=== PATIENT | female | born 1975 | race Caucasian/White ===

== ENCOUNTER → 2021-04-19 | Outpatient (CLI) | payer OTHER ==
[~2021-04-19] VITALS: Ht 162.6 cm; Wt 138.2 kg
[~2021-04-19] MED LIST: BETAMETHASONE D50 G2 TOP; BREO ELLIPTA 21 EACH INH; CARAFATE 1 GM TA1 GM PO; CHILDREN'S ZYRT10 M1 PO; FEROSUL325 M1 PO; FUROSEMIDE 40 M40 MG PO; HYDROCODON-ACE1 EAC7 PO; INCRUSE ELLI62.5 MCG INH; KLOR-CON M2020 MEQ PO; LAMOTRIGINE250 MG PO; LEVO-T100 MCG PO; METFORMIN HCL500 M3 PO; METHOTREXATE 22.5 M1 PO; NYAMYC15 GM TOP; NYSTATIN15 G1 TOP; OMEPRAZOLE40 MG PO; ONZETRA XSAIL11 MG PO; ONZETRA XSAIL11 MG SUBQ; OXYGEN MISCELL; PATADAY2.5 ML EA. EYE; PRAVACHOL40 MG PO; PROAIR HFA8.5 GM INH; REMERON 30 MG T30 M1 PO; SEROQUEL XR 20200 MG PO; SPIRIVA18 MCG INH; TREMFYA100 MG/11 SUBQ; TRIAMCINOLONE A80 G2 TOP; VEETIDS 500500 MG PO; VENLAFAXINE HCL75 MG PO; ZANAFLEX4 M1 PO
[2021-04-19 09:00] LABS: HEMATOCRIT 36.4 % (37.0-47.0); MCH 31.2 pg (26.0-34.0); MCHC 33.1 g/dL (28.0-37.0); MCV 94.2 fL (80.0-100.0); RBC 3.86 mil/uL (4.20-5.00); RDW 14.7 % (10.5-14.5); WBC 10.3 thou/uL (4.0-11.0)
[2021-04-19 09:12] LABS: CALCIUM 9.1 mg/dL (8.5-10.1); CREATININE 0.8 mg/dL (0.6-1.0); POTASSIUM 3.8 mmol/L (3.5-5.1)
[2021-04-19 09:22] VITALS: BP 133/78
--- NOTE | 2021-04-19 14:24 | CATHLAB ---
[facility] [place] [address] INVASIVE PROCEDURE REPORT Name: KELLY CHILDERS Room #: REG PRESTON AnguianoAung#: [id number] Admission: 04/19/21 Attend Phys: Jericho Sanches MD, Discharge: Date of : 71 Report #: [id number] THIS REPORT FOR: cc: Giles Camp James R. DO Mancuso, Gerald M. MD [facility] ~ APPROVED REPORT Study performed: 04/19/2021 09:41:50 Patient Details Patient Status: Out-Patient Room #: The patient is a 46 year-old female Event Personnel Jericho Sanches Supervisor [employer], Malaika Felder RN RN, Breanne Matias RTR, Rayna Moreno Ja'net RTR Monitor Procedures Performed Left Heart Cath w/or w/o Coronaries [id number] [facility] Art Access - R femoral artery* 43587 Initial Mod Sed Same Phys/QHP Gr5y 712281 Hemostasis w/ Mynx Indication Chest pain Procedure Narrative The Right Groin^ was infiltrated with 1% Lidocaine subcutaneous anesthesia. A PINNACLE 6FR Sheath #[id number] sheath was inserted into the RFA^. Coronary angiography was performed using coronary diagnostic catheters. The right coronary system was accessed and visualized with a JR4 catheter. The left coronary system was accessed and visualized with a JL4 catheter. The left ventricle was accessed and visualized with a PIGTAIL catheter. Left ventricular/Aortic Valve gradient assessed via catheter pullback. Left ventriculogram was performed in 30 degree projection. Closure device was deployed with a Fr MYNXGRIP 6/7F #[id number]. The patient tolerated the procedure well and there were no complications associated with the procedure. There was no hematoma. Intraoperative Conscious Sedation Sedation start time: 10:18 Case end Time: 10:42 [facility] [place] [address] INVASIVE PROCEDURE REPORT Name: KELLY CHILDERS Room #: [facility] Lynda#: [id number] Admission: 04/19/21 Attend Phys: Jericho Sanches, Discharge: Date of : 71 Report #: [id number] Fentanyl 50 mcg Versed 1 mg Fluoro Time: 1.30 minutes Dose: DAP 8862.10 cGycm2 1048 mGy Contrast Type and Amount: Omnipaque 90 ml Hemodynamics The aortic pressure is 140/79 mmHg with a mean of 109 mmHg. The left ventricular pressure is 163/14 mmHg with a mean of mmHg. The left ventricular end diastolic pressure is 50 mmHg. Pullback from the left ventricle to the aorta revealed no gradient across the aortic valve. Conclusion #1 Normal left jugular size and systolic function EF 60%. #2 abdominal aortogram looks to be a normal caliber aorta brisk distal flow no evidence of aneurysm formation. #3 normal coronary anatomy which was selectively injected. There is no evidence of coronary occlusive disease. It is a right dominant system. Impression/recommendations. Continue aggressive risk factor modification. No indication for coronary intervention. <ELECTRONICALLY SIGNED> By: Jericho Sanches MD, FACC 04/19/21 1424 1424 1424 Jericho Sanches MD, FACC /INF
--- NOTE | 2021-04-19 15:34 | EKG ---
[facility] [place] [place] [address] ELECTROCARDIOGRAM REPORT Name: KELLY CHILDERS [facility] #: [facility] [id number] Admission: 04/19/21 Attend Phys: Jericho Sanches MD, Discharge: Date of : 71 Report #: [id number] [facility] Test Date: 2021-04-19 Test Time: 08:51:29 Pat Name: KELLY CHILDERS Department: Room: Gender: F Service Architect: : 1975 Requested By: Jericho Sanches Order Number: [id number] : Bruno Lagunas Measurements Intervals [place] Rate: 81 P: 43 NV: 144 QRS: 52 QRSD: 89 T: 23 QT: 374 QTc: 434 Interpretive Statements Sinus rhythm Low voltage, precordial leads Borderline T abnormalities, anterior leads No previous ECG available for comparison Electronically Signed On 04-19-2021 15:34:22 CDT by Bruno Lagunas [email or web address] <ELECTRONICALLY SIGNED> By: Bruno Lagunas MD, [facility] 04/19/21 1534 0851 0851 Bruno Lagunas MD, FACC /EPI
== END | disposition home or self-care (01) ==
LOC: CATH 08:04
PROVIDERS: ATTEND Internal Medicine Cardiovascular Disease
DX: R07.9 Chest pain, unspecified (principal); I11.0 Hypertensive heart disease with heart failure; I50.9 Heart failure, unspecified; E11.9 Type 2 diabetes mellitus without complications; E03.9 Hypothyroidism, unspecified; E78.5 Hyperlipidemia, unspecified; F31.9 Bipolar disorder, unspecified; F41.9 Anxiety disorder, unspecified; G43.909 Migraine, unspecified, not intractable, without status migrainosus; J44.9 Chronic obstructive pulmonary disease, unspecified; K21.9 Gastro-esophageal reflux disease without esophagitis; G47.30 Sleep apnea, unspecified; M19.90 Unspecified osteoarthritis, unspecified site; M06.9 Rheumatoid arthritis, unspecified; Z98.890 Other specified postprocedural states; Z79.899 Other long term (current) drug therapy; Z82.49 Family history of ischemic heart disease and other diseases of the circulatory system; Z87.891 Personal history of nicotine dependence; Z88.8 Allergy status to other drugs, medicaments and biological substances